=== PATIENT | male | born 1980 | race Caucasian/White ===

== ENCOUNTER 2016-11-20 14:34 | Emergency (ER) | payer SELFPAY ==
[2016-11-20 14:53] VITALS: BP 125/67
--- NOTE | 2016-11-20 15:31 | UC ---
[facility] HPI - HPI Summary HPI Summary: Patient has a cracked tooth that is causing increased pain for the past 3 days. has been feeling chills. has been doing salt water gargles. - History of Current Complaint Chief Complaint: UCDentalProblem Stated Complaint: RT LOWER DENTAL PAIN Time Seen by Provider: 11/20/16 15:09 Hx Obtained From: Patient Onset/Duration: Sudden Onset, Lasting Days Severity: Moderate Aggravating: Chewing Alleviating: Nothing Related History: TMJ Dysfunction, Previous Dental Care on Same Tooth - Allergies/Home Medications Allergies/Adverse Reactions: Allergies Allergy/AdvReac Type Severity Reaction Status Date / Time Dtap Vaccine Allergy Anaphylatic Uncoded 11/20/16 14:57 Shock Home Medications: Home Medications Ibuprofen TAB* [Advil TAB*] 3 tab PO Q6H PRN 11/20/16 [History Confirmed ] PMH/Surg Hx/FS Hx/Imm Hx Previously Healthy: Yes - Surgical History Surgical History: None - Family History Known Family History: Positive: Hypertension - Social History Alcohol Use: None Substance Use Type: None Smoking Status (MU): Never Smoked Tobacco - Immunization History Most Recent Influenza Vaccination: NONE Most Recent Tetanus Shot: UNK Review of Systems Constitutional: Negative Skin: Negative Eyes: Negative ENT: Dental Pain Respiratory: Negative Cardiovascular: Negative Gastrointestinal: Negative Genitourinary: Dysuria Motor: Negative Neurovascular: Negative Musculoskeletal: Negative Neurological: Negative Psychological: Negative All Other Systems Reviewed And Are Negative: Yes Physical Exam Triage Information Reviewed: Yes Appearance: Well-Nourished, Ill-Appearing, Pain Distress Vital Signs: Initial Vital Signs Temp 97.9 F 11/20/16 14:47 Pulse 55 11/20/16 14:47 Resp 18 11/20/16 14:47 BP 125/67 11/20/16 14:47 Pulse Ox 99 11/20/16 14:47 Vital Signs Reviewed: Yes Eye Exam: Normal Eyes: Positive: Conjunctiva Clear ENT Exam: Normal ENT: Positive: Pharyngeal erythema, Nasal congestion, Nasal drainage Dental: Positive: Dental Fracture @ - right lower jaw, Cellulitis @, Cervical Lymphadenopathy - right submandibular Neck exam: Normal Neck: Positive: Supple, Nontender, No Lymphadenopathy Respiratory Exam: Normal Respiratory: Positive: Chest non-tender, Lungs clear, Normal breath sounds Cardiovascular Exam: Normal Cardiovascular: Positive: RRR, No Murmur, Pulses Normal Abdominal Exam: Normal Abdomen Description: Positive: Nontender, No Organomegaly, Soft Bowel Sounds: Positive: Present Musculoskeletal Exam: Normal Musculoskeletal: Positive: Strength Intact, ROM Intact, No Edema Neurological Exam: Normal Neurological: Positive: Alert, Muscle Tone Normal Psychological Exam: Normal Skin Exam: Normal Dental Complaint Course/Dx - Course Course Of Treatment: hx obtained, exam performed, meds reviewed, treated for dental infection. - Differential Dx/Diagnosis Differential Diagnosis/Dx: Dental Caries, Fractured Tooth, TMJ Syndrome Provider Diagnoses: TMJ. Dental filiberto. dental infection Discharge - Discharge Plan Condition: Stable Disposition: HOME Patient Education Materials: Toothache (ED) Additional Instructions: 1. take the medication as prescribed. 2. Increase your fluid intake 3. Follow up with the dentist in the next week.
== END 2016-11-20 15:38 | disposition home or self-care (01) ==
LOC: UCEAST 14:34
DX: M26.609 Unspecified temporomandibular joint disorder, unspecified side (principal); K02.9 Dental caries, unspecified; K04.7 Periapical abscess without sinus; Z88.7 Allergy status to serum and vaccine
CPT/HCPCS: 99202; G0463

== ENCOUNTER 2019-02-01 14:45 | Emergency (ER) | payer BC ==
[2019-02-01 15:14] VITALS: BP 106/67
== END 2019-02-01 16:14 | disposition left against medical advice (07) ==
LOC: UCEAST 14:45
DX: Z53.8 Procedure and treatment not carried out for other reasons (principal)